=== PATIENT | female | born 1975 | race Asian ===

== ENCOUNTER 2016-11-07 09:39 | Outpatient (CLI) | payer OTHER ==
--- NOTE | 2016-11-07 11:37 | Ultrasound Report ---
ULTRASOUND PELVIS COMPLETE - TRANSABDOMINAL AND TRANSVAGINAL: INDICATION: Abnormal uterine bleeding. COMPARISON: None similar at this institution. FINDINGS: Transabdominal and transvaginal pelvic sonography performed in this patient with LMP of 09/30/2016 demonstrates a 10.4 x 6.5 x 7.2 cm retroverted uterus. An echogenic IUD course in the cervical region as on endovaginal images 2-5 not reliably confirmed along the canal and possibly maybe more anterior in the myometrium. Nonspecific endometrial heterogeneity with stripe thickness of approximately 1 cm toward the fundus, endovaginal image 9. No significant free fluid. Normal imaged urinary bladder. Right ovary 3.7 x 1.7 x 2.8 cm and demonstrates a 1.1 cm simple follicular cyst, endovaginal image 20. However, another slightly complex right ovarian cyst/focus measuring 0.9 cm as on endovaginal images 21-26 demonstrates low-level intrinsic echoes as also peripheral echogenicities questionable for a yolk sac and/or a pole. No cardiac activity though obtained. Mild surrounding blood flow noted. Unremarkable left ovary measuring 2.9 x 1.7 x 2.2 cm. CONCLUSION: 1. Retroverted uterus with mild nonspecific endometrial heterogeneity. IUD also noted, not excluded improperly positioned, as detailed above. 2. Complex right ovarian cyst, sonographically difficult to exclude for an ectopic , as described. [employer] and serum beta-hCG value correlation suggested, latter not available at this time for interpretation. 3. Normal left ovary. I phoned the above results to Dr. Maradiaga, 11 AM, 11/07/2016. Per his instructions, the patient is to be in his office later this afternoon. Thank you for the opportunity to participate in this patient's care.
== END 2016-11-07 09:40 | disposition home or self-care (01) ==
LOC: US 09:39
PROVIDERS: ATTEND Family Medicine
DX: N83.01 Follicular cyst of right ovary (principal); N85.4 Malposition of uterus; Z97.5 Presence of (intrauterine) contraceptive device
CPT/HCPCS: 76830; 76856